=== PATIENT | female | born 1990 | race Caucasian/White ===

== ENCOUNTER 2022-10-25 10:20 | Emergency (ER) | payer OTHER, SELFPAY ==
[2022-10-25 10:20] VITALS: BP 118/78; PULSE 98; RESP 16; TEMP 36.7; O2SAT 95
--- NOTE | 2022-10-25 10:26 | ED.URI ---
HPI - URI/Sore Throat General Chief Complaint: Upper Respiratory Infection Stated Complaint: sore throat Time Seen by Provider: 10/25/22 10:25 Source: patient and RN notes reviewed Mode of arrival: ambulatory Limitations: no limitations History of Present Illness MD elicited complaint: sore throat Onset (ago): day(s) (3) Consistency: constant Severity: moderate Able to tolerate fluids by mouth: Yes Exacerbating factors: swallowing Relieving factors: nothing Context: sick contacts ( Strep throat) Associated symptoms: fever ( subjective), chills and myalgias Treatments prior to arrival: none Related Data Allergies Allergy/AdvReac Type Severity Reaction Status Date / Time No Known Allergies Allergy Unverified 06/04/11 14:22 Review of Systems Review of Systems: All systems reviewed & are unremarkable except as noted in HPI and below PMFSH Past Medical History Medical History (Updated 10/25/22 @ 10:49 by Pipe Garcia MD) BMI 40.0-44.9, adult Surgical History Surgical History (Updated 10/25/22 @ 10:41 by Pipe Garcia MD) History of section Social History Social History (Updated 10/25/22 @ 10:41 by Pipe Garcia MD) Smoking packs per day: 1 Smoking cigarettes per day: 20.0 Smoking status: Current every day smoker Tobacco type: cigarettes Exam Const: General: healthy appearing, no acute distress and alert Nutritional Appearance: well nourished and obese Orientation/consciousness: patient oriented x3 Limitations: no limitations HENMT: Head: normal to inspection Ears: external ears normal Face/Nose/Sinus: Normal external nose present Face and sinus: normal facial exam Throat: uvula midline, abnormal tonsil on the right erythema and exudates and posterior oropharynx abnormal erythema and exudates Eyes: Conjunctivae: conjunctivae normal Pupils: Equal, round and reactive pupils present EOM: EOMs intact bilaterally Neck: Neck: lymphadenopathy right anterior cervical soft and tender Resp: Effort & Inspection: normal respiratory effort Auscultation: clear to auscultation bilaterally Cardio: Rate: regular rate Rhythm: regular rhythm GI: GI Palp: Yes Soft to palpation and No Tenderness to palpation present (GI) Auscultation: normal bowel sounds Back/Spine/Pelvis: Cervical Spine: cervical ROM normal Thoracic/Lumbar Spine: thoraco-lumbar ROM normal Skin: General skin exam: normal color Rashes: no rashes Neuro: General: patient oriented x3, moves all extremities, no focal motor deficits and CN's II-XI intact bilaterally Speech: normal speech Gait exam (Neuro): Normal gait present Extrem: General: normal to inspection and no clubbing, cyanosis or edema Psych: Mental Status: mental status grossly normal Affect: normal affect Attitude: cooperative Course Vital Signs Vital signs: Vital Signs Temperature 36.7 C 10/25/22 10:20 Pulse Rate 98 10/25/22 10:20 Respiratory Rate 16 10/25/22 10:20 Blood Pressure 118/78 10/25/22 10:20 Pulse Oximetry 95 10/25/22 10:20 Oxygen Delivery Room Air 10/25/22 10:20 Temperature 36.6 C 10/25/22 11:17 Pulse Rate 74 10/25/22 11:17 Respiratory Rate 20 10/25/22 11:17 Blood Pressure 118/78 10/25/22 10:20 Pulse Oximetry 97 10/25/22 11:17 Oxygen Delivery Room Air 10/25/22 11:17 MDM - URI/Sore Throat Differential Diagnosis Differential diagnosis: Likely upper respiratory infection, viral infection and pharyngitis Lab Data Labs: Lab Results 10/25/22 Range/Units 10:26 Group A Strep (PCR) Detected A (Negative) Discharge Plan Discharge Clinical Impression: Strep pharyngitis Patient Disposition: Home, Self-Care Condition: Stable Instructions: Antibiotic Form, Strep Throat (ED) Additional Instructions: No kissing on the lips. No one drinks from your glass, do not drink from anyone else's glass. In 3-4 days get a new toothbrush. Use Tylenol and or Motrin as needed
[2022-10-25 11:11] LABS: Strep Group A RT-PCR DETECTED (Negative)
[2022-10-25 11:17] VITALS: PULSE 74; RESP 20; TEMP 36.6; O2SAT 97
== END 2022-10-25 11:19 | disposition home or self-care (01) ==
PROVIDERS: Emergency Provider Emergency Medicine; PCP Family Medicine
DX: J02.0 Streptococcal pharyngitis (principal); F17.210 Nicotine dependence, cigarettes, uncomplicated
CPT/HCPCS: 87651; 99283

== ENCOUNTER 2023-01-18 08:48 | Outpatient (CLI) | payer OTHER, SELFPAY ==
--- NOTE | ~2023-01-18 | XR_ITS ---
XR cervical spine 4-5V DATE: 01/18/2023 09:18 INDICATION: Left neck pain. Coughing injury one week ago. TECHNIQUE: AP, open-mouth, odontoid, lateral, swimmer's and bilateral oblique views COMPARISON: None FINDINGS: There is straightening of the cervical spine. No fracture or dislocation or locked facet or prevertebral soft tissue swelling is detected. C1 and C 2 are normally aligned and the odontoid process is intact. The cervical interspaces are well preserve d. IMPRESSION: Straightening; otherwise negative Reviewed, dictated and finalized at location A.
== END 2023-01-18 08:49 | disposition home or self-care (01) ==
LOC: CHSIMG 08:50
PROVIDERS: PCP Family Medicine; Visit Provider Family Medicine
DX: M54.2 Cervicalgia (principal); M53.82 Other specified dorsopathies, cervical region
CPT/HCPCS: 72050

== ENCOUNTER 2024-08-14 16:09 | Outpatient (CLI) | payer OTHER, SELFPAY ==
--- NOTE | ~2024-08-14 | XR_ITS ---
XR cervical spine 4-5V Ordering provider: Jason Don MD History: . Cervicalgia . Comparison: None. FINDINGS: VERTEBRAL BODIES: Normal height and alignment. No visible fracture or subluxation. The dens is intact . Asymmetry in the distance around the odontoid process is seen which may be positional. DISK SPACES: Well maintained. PARASPINOUS SOFT TISSUES: No prevertebral soft tissue swelling. IMPRESSION: No definite acute osseous abnormality cervical spine. Reviewed, dictated and finalized at location A. 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
--- NOTE | ~2024-08-14 | XR_ITS ---
3 VIEWS THORACIC SPINE Ordering provider: Jason Don MD History: . Cervicalgia . Comparison: None. FINDINGS: VERTEBRAL BODIES: Normal height and alignment. No visible fracture or subluxation. Degenerative pisano es of the spine. DISK SPACES: Multilevel degenerative disc disease in the mid and lower thoracic area. SOFT TISSUES: Normal. IMPRESSION: No acute osseous abnormality of the thoracic spine. Multilevel degenerative disc disease. Reviewed, dictated and finalized at location A. 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
== END 2024-08-14 16:10 | disposition home or self-care (01) ==
PROVIDERS: PCP Family Medicine; Visit Provider Family Medicine
DX: M54.2 Cervicalgia (principal); M51.34 Other intervertebral disc degeneration, thoracic region
CPT/HCPCS: 72050; 72072